=== PATIENT | female | born 1990 | race Caucasian/White ===

== ENCOUNTER → 2021-09-21 | Outpatient (CLI) | payer BC ==
[~2021-09-21] MED LIST: ATIVAN1 MG PO; BENTYL 20MG TAB20 MG PO; CELECOXIB200 MG PO; COLACE 100MG C100 MG PO; COLACE100 MG PO; CREON DR 36,001 EACH PO; CYCLOBENZAPRINE5 MG PO; IBUPROFEN600 MG PO; LORTAB 5-325 M1 EACH PO; METHYLPREDNISOLO4 MG PO; METOPROLOL SUCC25 MG PO; NORCO 5-325 TA1 EACH PO; OMNICEF 300 MG300 MG PO; PHENERGAN 25 MG25 M1 PO; PRENATAL VITAM1 EAC5 PO; PROTONIX40 MG PO; PROVENTIL HFA6.7 GM PO; PYRIDIUM200 MG PO; ROXICODONE5 MG PO; VISTARIL25 MG PO; ZOFRAN 4 MG TAB4 MG PO; daptomycin
[2021-09-21 12:43] LABS: HEMOGLOBIN 11.4 gm/dl (12.3-15.3); RED BLOOD COUNT 4.5 M/UL (4.00-5.10); WHITE BLOOD COUNT 5.1 K/UL (4.5-11.0)
[2021-09-21 13:47] LABS: BUN/CREATININE RATIO 19 (0-10)
== END ==
LOC: OPSV 12:00
PROVIDERS: Internal Medicine Infectious Disease
DX: M46.46 Discitis, unspecified, lumbar region (principal)
CPT/HCPCS: 80053; 85025; 85652; 86140; G0463

== ENCOUNTER → 2021-10-03 | Outpatient (CLI) | payer BC | LOC: LAB 14:20 | DX: Z87.39 Personal history of other diseases of the musculoskeletal system and connective tissue (principal) | CPT/HCPCS: 36415; 86140 ==

== ENCOUNTER → 2021-11-04 | Outpatient (CLI) | payer BC | LOC: CT 07:46 | DX: M53.3 Sacrococcygeal disorders, not elsewhere classified (principal); M46.26 Osteomyelitis of vertebra, lumbar region; M48.061 Spinal stenosis, lumbar region without neurogenic claudication | CPT/HCPCS: 72133; 72194; Q9967 ==